=== PATIENT | female | born 1985 ===

== ENCOUNTER → 2023-07-15 | Outpatient (CLI) | payer BC ==
[~2023-07-15] MED LIST: NORCO 325 MG-51 TAB PO; ZOFRAN8 MG PO
== END ==
LOC: COL.RAD 14:12
DX: K80.20 Calculus of gallbladder without cholecystitis without obstruction (principal)

== ENCOUNTER 2023-09-03 07:22 | Day surgery (SDC) | payer BC ==
[~2023-09-03] VITALS: Ht 157.5 cm; Wt 72.0 kg
[~2023-09-03 07:22] MED LIST changes: +LR 1,000 ML IV SCH; -NORCO 325 MG-51 TAB PO; -ZOFRAN8 MG PO
[2023-09-03] MEDS ORDERED: Lidocaine PF 2% (20 MG/ML) 5 ML VIAL ONE (07:57)
[2023-09-03] MEDS ORDERED: Rocuronium 50 MG/5 ML Multi-Dose VIAL ONE (07:57)
[2023-09-03] MEDS ORDERED: dexAMETHasone 10 MG/ML VIAL ONE (07:58)
[2023-09-03] MEDS ORDERED: Ondansetron 4 MG/2 ML VIAL ONE (07:58)
[2023-09-03] MEDS ORDERED: diphenhydrAMINE 50 MG/ML 1 ML VIAL ONE (07:58)
[2023-09-03] MEDS ORDERED: ZOFRAN8 MG PO (07:58)
[2023-09-03] MEDS ORDERED: fentaNYL 50 MCG/ML 2 ML VIAL ONE (07:58)
[2023-09-03 08:22] VITALS: BP 106/59; PULSE 49; TEMP 98.4
[2023-09-03] MEDS ORDERED: Ondansetron 4 MG/2 ML VIAL IV PRN ×2 (08:30→11:30)
[2023-09-03] MEDS ORDERED: HYDROmorphone 1 MG/1 ML SYRINGE [PACU/SDC ONLY] IV PRN (08:30)
[2023-09-03] MEDS ORDERED: Indocyanine Green 12.5 MG in Water For Injection,Sterile 2.5 ML IV ONE (08:30)
[2023-09-03] MEDS ORDERED: fentaNYL 50 MCG/ML 1 ML SYRINGE/VIAL [PACU/SDC ONLY] IV PRN (08:30)
[2023-09-03] MEDS ORDERED: droPERidol 2.5 MG/ML 2 ML VIAL IV PRN (08:30)
[2023-09-03] MEDS ORDERED: Ketorolac 30 MG/ML VIAL ONE ×2 (09:08→10:55)
[2023-09-03] MEDS ORDERED: Ibuprofen 600 MG TAB PO PRN (11:30)
[2023-09-03] MEDS ORDERED: NORCO 325 MG-51 TAB PO (11:42)
[2023-09-03 12:05] VITALS: BP 119/59; PULSE 52; TEMP 97.4
[2023-09-03 12:20] VITALS: BP 114/66; PULSE 42
[2023-09-03 12:35] VITALS: BP 110/45; PULSE 46
[2023-09-03 12:50] VITALS: BP 123/57; PULSE 46
--- NOTE | 2023-09-03 13:33 | NUR ---
1205: PT TO BAY 7 PER CART FROM PACU. REPORT RECEIVED. ALERT AND ORIENTED. VSS. 4 ABD INCISIONS WITH BANDAIDS IN PLACE. C/D/I. TOLERATING ICE CHIPS. DENIES NAUSEA. RATES PAIN 2/10. BREATHING EVEN AND UNLABORED. DOES NOT WISH TO ADVANCE DIET AT THIS TIME. NO FURTHER NEEDS AT THIS TIME. RESTING IN COT. CALL LIGHT IN REACH. FAMILY AT BEDSIDE. 1220: ALERT AND ORIENTED. VSS. BREATHING EVEN AND UNLABORED. PT TOLEREATING ICE CHIPS AND DENIES NAUSEA. WISHED TO ADVANCE DIET WITH CRACKERS. PAIN IS TOLERABLE. NO FURTHER NEEDS NOTED RESTING IN COT. CALL LIGHT IN REACH. FAMILY AT BEDSIDE. 1235: ALERT AND ORIENTED. VSS. BREATHING EVEN AND UNLABORED. PT TOLERATING CRACKERS AND DENIES NAUSEA. REQUESTING PAIN MEDICATION AT THIS TIME. NO FURTHER NEEDS NOTED. RESTING IN COT. CALL LIGHT IN REACH. FAMILY AT BEDSIDE. 1239: PRN NORCO GIVEN ORDERED. 1250: ALERT AND ORIENTED. VSS. BREATHING EVEN AND UNLABROED. PT CONTINUES TO DENY NAUSEA. PAIN TOLERABLE. AMBULATED TO THE BATHROOM WITH STEADY GAIT. FOUR ABD INCISIONS REMAIN C/D/I. 1305: DISCHARGE EDUCATION COMPLETED. PT STATED UNDERSTANDING OF HOME AND FOLLOW-UP INSTRUCTIONS. DISCHARGE PAPERWORK GIVEN TO PT. IV DC'D AT THIS TIME. PT DENIES ASSISTANCE WITH DRESSING. 1313: PT OFF UNIT PER WHEELCHAIR. PT DISCHARGED TO HOME WITH FAMILY PER PERSONAL VEHICLE.
== END 2023-09-03 13:13 | disposition home or self-care (01) ==
LOC: SDCO 07:22
DX: K80.10 Calculus of gallbladder with chronic cholecystitis without obstruction (principal)
CPT/HCPCS: J0690; J1100; J1170; J1200; J1885; J2405; J2704; J3010; J7120